=== PATIENT | male | born 1965 | race Caucasian/White ===

== ENCOUNTER 2018-07-12 20:01 | Emergency (ER) ==
[~2018-07-12] VITALS: Ht 172.7 cm; Wt 86.2 kg
[~2018-07-12 20:01] MED LIST: ASPI-1169 PO; CARV3.122 PO; FENO48TA PO
--- NOTE | 2018-07-12 20:17 | NUR ---
Michael garcia in [facility] - 07/12/18 at 2023 by JAMMIE PT WAS SUTURED, WOUND WAS CLEANED AND COVERED WITH BANDAGE.
[2018-07-12 20:21] VITALS: BP 138/88
--- NOTE | 2018-07-12 20:23 | NUR ---
Note jose in EDM - 07/12/18 at 2023 by JAMMIE Patient discharged to home in stable condition. Written and verbal after care instructions given. Patient verbalizes understanding of instruction. PT AMBULATED OUT WITH A STEADY GAIT. VSS.
== END 2018-07-12 22:43 | disposition home or self-care (01) ==
LOC: ER 20:04
DX: H60.92 Unspecified otitis externa, left ear (principal); I10 Essential (primary) hypertension; I25.2 Old myocardial infarction; Z95.1 Presence of aortocoronary bypass graft; Z98.84 Bariatric surgery status; Z79.82 Long term (current) use of aspirin